=== PATIENT | female | born 1985 | race Hispanic/Latino ===

== ENCOUNTER 2017-06-27 09:13 | Observation (INO) | payer MEDICAID, OTHER ==
[~2017-06-27] VITALS: Ht 161.3 cm; Wt 87.1 kg
[2017-06-27] MEDS ORDERED: LACTATED RINGERS 1000ML 1,000 ML IV ONE (09:53)
[2017-06-27] MEDS ORDERED: LACTATED RINGERS 1000ML 1,000 ML IV SCH (10:15)
[2017-06-27] MEDS ORDERED: TERBUTALINE SULFATE VIAL 1MG/ML SQ SCH (12:15)
[2017-06-27] MEDS ORDERED: TERBUTALINE SULFATE VIAL 1MG/ML SQ ONE (12:20)
[2017-06-27 13:14] VITALS: BP 112/58
== END 2017-06-27 13:30 | disposition home or self-care (01) ==
LOC: EDH 09:13 → LDH 09:14
PROVIDERS: ADMIT Obstetrics & Gynecology; ATTEND Obstetrics & Gynecology
DX: O26.893 Other specified pregnancy related conditions, third trimester (principal); R10.9 Unspecified abdominal pain; R10.2 Pelvic and perineal pain; Z3A.39 39 weeks gestation of pregnancy
CPT/HCPCS: 99285; G0378 ×4; J3105; J7120 ×2; 96360

== ENCOUNTER 2017-07-01 11:00 | Inpatient (IN) | payer MEDICAID, OTHER ==
[~2017-07-01] VITALS: Ht 162.6 cm; Wt 86.6 kg
[2017-07-01 16:30] LABS: HEMATOCRIT 29.6 % (36-48); MEAN CORPUSCULAR HEMOGLOBIN 30.3 pg (27.0-33.0); MEAN CORPUSCULAR HGB CONC 35.7 g/dL (32.0-36.0); MEAN CORPUSCULAR VOLUME 84.9 fL (79-99); PLATELET COUNT (AUTO) 234 K/uL (130-400); RED BLOOD CELL COUNT(AUTO) 3.49 MIL/uL (4.00-5.50); RED CELL DISTRIBUTION WIDTH 14.2 % (11.0-15.5); WHITE BLOOD COUNT (AUTO) 7.8 K/uL (4.8-10.8)
[2017-07-02] MEDS ORDERED: LACTATED RINGERS 1000ML 1,000 ML IV SCH (05:45)
[2017-07-02] MEDS ORDERED: CEFAZOLIN SODIUM 1 GM VIAL IVP PRN (05:45)
[2017-07-02] MEDS ORDERED: SENSORCAINE/DEXT/PF 0.75% 2ML AMP IJ ONE (06:43)
[2017-07-02] MEDS ORDERED: MIDAZOLAM HCL 1 MG/ML 2ML VIAL ONE ×2 (06:56→07:17)
[2017-07-02] MEDS ORDERED: METHYLERGONOVINE MALEATE 0.2 MG/1 ML ML ONE (07:13)
[2017-07-02] MEDS ORDERED: OXYTOCIN-LR 20 UNITS/1000 ML 1,000 ML IV PRN (07:18)
[2017-07-02] MEDS ORDERED: PROPOFOL 10 MG/ML 20ML VIAL IV ONE (07:21)
[2017-07-02] MEDS ORDERED: SODIUM CHLORIDE 0.9% 10 ML VIAL IVP PRN (07:30)
[2017-07-02] MEDS: MEPERIDINE-PF 75 MG/ML SYG IM PRN ×2 (08:59→18:01)
[2017-07-02] MEDS: PROMETHAZINE HCL 25 MG/ML 1ML AMPULE IM PRN ×2 (08:59→18:01)
[2017-07-02 09:45] VITALS: BP 113/80
[2017-07-02] MEDS ORDERED: ONDANSETRON HCL MDV 20ML 2 MG/ML VIAL IVP PRN (10:15)
[2017-07-02] MEDS ORDERED: ONDANSETRON HCL 4 MG/2 ML 8 MG in SODIUM CHLORIDE 0.9% 50 ML IVP NR (10:15)
[2017-07-02] MEDS ORDERED: ONDANSETRON HCL 4 MG/2 ML VIAL IVP PRN (10:15)
[2017-07-02] MEDS ORDERED: DiphenhydrAMINE HCL 50 MG/ML VIAL IVP PRN (10:15)
[2017-07-02] MEDS ORDERED: EPHEDRINE SULFATE 50 MG/ML AMPULE IVP PRN (10:15)
[2017-07-02] MEDS ORDERED: METOCLOPRAMIDE 10 MG/2 ML VIAL IVP PRN (10:15)
[2017-07-02] MEDS ORDERED: NALOXONE HCL 0.4 MG/1 ML ML IVP PRN (10:15)
[2017-07-02] MEDS ORDERED: PROMETHAZINE HCL 25 MG/ML 1ML AMPULE IM PRN (10:15)
[2017-07-02] MEDS ORDERED: MORPHINE SULFATE 2 MG/ML 1ML SYG IVP PRN (10:15)
[2017-07-02] MEDS ORDERED: HYDROCODONE/ACETAMINOPHEN 5/325 MG TAB PO PRN (10:15)
[2017-07-02 12:05] VITALS: BP 100/78
[2017-07-02] MEDS: HYDROCODONE/ACETAMINOPHEN 5/325 MG TAB PO PRN (14:05)
[2017-07-02] MEDS: DEXTROSE 5 %-0.45 % NACL 1,000 ML IV PRN ×2 (14:50→23:54)
[2017-07-02 15:49] VITALS: BP 105/65
[2017-07-02] MEDS ORDERED: PNV1TABL17 PO (17:33)
[2017-07-02 20:18] VITALS: BP 104/63
[2017-07-02 23:49] VITALS: BP 100/67
[2017-07-03 04:01] VITALS: BP 104/61
[2017-07-03] MEDS: DEXTROSE 5 %-0.45 % NACL 1,000 ML IV PRN (04:08)
[2017-07-03] MEDS: HYDROCODONE/ACETAMINOPHEN 5/325 MG TAB PO PRN (04:08)
[2017-07-03] MEDS ORDERED: ACETAMINOPHEN EXTRA STRENGTH 500 MG TABLET PO PRN ×2 (04:45→08:15)
[2017-07-03] MEDS ORDERED: HYDROCODONE/ACETAMINOPHEN 5/325 MG TAB PO PRN (04:45)
[2017-07-03] MEDS ORDERED: BISACODYL 10 MG SUPP.RECT RC PRN ×2 (04:45→08:15)
[2017-07-03] MEDS ORDERED: LANOLIN 30GM OINTMENT TP PRN ×2 (04:45→08:15)
[2017-07-03 06:54] LABS: HEMATOCRIT 27.2 % (36-48); MEAN CORPUSCULAR HEMOGLOBIN 28.4 pg (27.0-33.0); MEAN CORPUSCULAR HGB CONC 33.2 g/dL (32.0-36.0); MEAN CORPUSCULAR VOLUME 85.3 fL (79-99); PLATELET COUNT (AUTO) 182 K/uL (130-400); RED BLOOD CELL COUNT(AUTO) 3.19 MIL/uL (4.00-5.50); RED CELL DISTRIBUTION WIDTH 14.5 % (11.0-15.5)
[2017-07-03 07:32] VITALS: BP 106/67
[2017-07-03] MEDS ORDERED: IBUPROFEN 600 MG TABLET PO PRN (08:15)
[2017-07-03] MEDS ORDERED: SIMETHICONE 80 MG TAB.CHEW PO PRN (08:15)
[2017-07-03] MEDS ORDERED: ACETAMINOPHEN-CODEINE 300/30MG TAB PO PRN (08:15)
[2017-07-03] MEDS ORDERED: DOCUSATE SODIUM 100 MG CAP PO SCH (09:00)
[2017-07-03] MEDS: SIMETHICONE 80 MG TAB.CHEW PO PRN ×2 (09:03→20:49)
[2017-07-03] MEDS: DOCUSATE SODIUM 100 MG CAP PO SCH ×2 (09:04→20:49)
[2017-07-03] MEDS: IBUPROFEN 600 MG TABLET PO PRN ×2 (09:04→18:04)
[2017-07-03 09:19] LABS: HEPATITIS Bs ANTIGEN SCREEN P Negative (Negative)
[2017-07-03] MEDS: ACETAMINOPHEN-CODEINE 300/30MG TAB PO PRN ×2 (10:46→19:59)
[2017-07-03 11:33] VITALS: BP 100/53
[2017-07-03 15:46] VITALS: BP 102/68
[2017-07-03 19:30] VITALS: BP 121/71
[2017-07-03 23:45] VITALS: BP 98/53
[2017-07-04 03:45] VITALS: BP 100/66
[2017-07-04 07:40] VITALS: BP 102/65
[2017-07-04] MEDS: DOCUSATE SODIUM 100 MG CAP PO SCH (09:38)
[2017-07-04] MEDS: SIMETHICONE 80 MG TAB.CHEW PO PRN (09:38)
[2017-07-04] MEDS: ACETAMINOPHEN-CODEINE 300/30MG TAB PO PRN (09:39)
[2017-07-04 11:52] VITALS: BP 98/53
[2017-07-04 15:51] VITALS: BP 106/71
[2017-07-04] MEDS: IBUPROFEN 600 MG TABLET PO PRN (17:06)
== END 2017-07-04 18:05 | disposition home or self-care (01) | DRG 766 ==
LOC: EDSTATUS 11:00 → LDH 07-02 05:36 → WSH 07-02 10:12
PROVIDERS: ADMIT Obstetrics & Gynecology; ATTEND Obstetrics & Gynecology
PROC: 10D00Z1 Extraction of Products of Conception, Low, Open Approach (ICD-10-PCS; principal; 2017-07-02 07:45)
DX: O34.211 Maternal care for low transverse scar from previous cesarean delivery (principal); Z37.0 Single live birth; Z3A.40 40 weeks gestation of pregnancy
CPT/HCPCS: 36415; 59510; 85027; 86592; 86850; 86900; 86901; 87340; A4344; A4450; A4606; J0690; J2175; J2210; J2250; J2550; J2704; J3490; J7120

== ENCOUNTER 2018-02-09 03:56 | Emergency (ER) | payer MEDICAID, OTHER ==
[~2018-02-09 03:56] MED LIST: PNV1TABL17 PO
== END 2018-02-09 04:08 | disposition home or self-care (01) ==
LOC: EDH 03:56
DX: Z02.83 Encounter for blood-alcohol and blood-drug test (principal)